=== PATIENT | male | born 1960 | race Caucasian/White ===

== ENCOUNTER 2024-10-23 14:11 | Inpatient (IN) | payer OTHER ==
[~2024-10-23] VITALS: Ht 175.3 cm; Wt 87.1 kg
[2024-10-23] VITALS (31 sets, daily range): BP systolic 91–123; BP diastolic 40–95; TEMP 98–98.1; O2SAT 87–97
[2024-10-23] MEDS ORDERED: LEVETIRACETAM (500MG) 1,000 MG in PREMIX 90 EA IV STA (14:24)
[2024-10-23 14:26] LABS: BASOPHILS % (AUTO) 0.1 % (0.0-2.0); EOSINOPHILS % (AUTO) 0.1 % (0.0-6.0); HEMATOCRIT 41 % (39-51); LYMPHOCYTES # (AUTO) 0.7 K/uL (0.8-4.8); LYMPHOCYTES % (AUTO) 5.1 % (20.0-44.0); MEAN CORPUSCULAR HEMOGLOBIN 26 PG (26.0-33.0); MEAN CORPUSCULAR HGB CONC 32 g/dl (31.0-36.0); MEAN CORPUSCULAR VOLUME 82 fL (80-96); MONOCYTES # (AUTO) 0.8 K/uL (0.1-1.30); MONOCYTES % (AUTO) 5.5 % (2.0-12.0); NEUTROPHILS # (AUTO) 12.9 K/uL (1.8-8.9); NEUTROPHILS % (AUTO) 89.2 % (43.0-81.0); PLATELET COUNT (AUTO) 241 K/uL (150-450); RED BLOOD CELL COUNT(AUTO) 4.93 MIL/uL (4.5-6.0); RED CELL DISTRIBUTION WIDTH 16.3 % (11.5-15.0); WHITE BLOOD COUNT (AUTO) 14.5 K/uL (4.3-11.0)
[2024-10-23] MEDS: DILTIAZEM HCL 50 MG IV IV ONE (14:30)
[2024-10-23] MEDS: IV NS 0.9% 1,000 ML BAG IV ONE ×2 (14:30→16:57)
[2024-10-23] MEDS ORDERED: DILTIAZEM HCL 50 MG IV ONE (14:37)
[2024-10-23] MEDS: LEVETIRACETAM (500MG) 1,000 MG in IV NS 0.9% 90 ML IV STA (14:39)
[2024-10-23 14:44] LABS: CALCIUM, SERUM 9.3 mg/dL (8.5-10.1); CARBON DIOXIDE 23 mmol/L (21-32); CHLORIDE 98 mmol/L (98-107); GLUCOSE 122 mg/dL (74-106); POTASSIUM 5.8 mmol/L (3.5-5.1); SODIUM SERUM 133 mmol/L (136-145)
[2024-10-23 14:48] LABS: CREATININE 9.1 mg/dL (0.6-1.3); UREA NITROGEN, BLOOD 106 mg/dL (7-18)
[2024-10-23 14:59] LABS: LACTIC ACID 2.1 mmol/L (0.4-2.0)
[2024-10-23] MEDS ORDERED: LEVETIRACETAM (500MG) 1,000 MG in IV NS 0.9% 90 ML IV SCH (15:00)
[2024-10-23] MEDS: SODIUM BICARBONATE SYR 50 MEQ/50 ML DISP.SYRIN IV ONE (15:00)
[2024-10-23] MEDS: CEFEPIME 1 GM in IV D5W 50 ML IV ONE (15:00)
[2024-10-23 15:01] LABS: INR 1.18 (0.91-1.10)
[2024-10-23] MEDS: Calcium Gluconate 1GM/10ML 4.65 MEQ in IV NS 0.9% 100 ML IV ONE (15:09)
[2024-10-23] MEDS ORDERED: Calcium Gluconate 0.465 MEQ/ML VIAL IV ONE (15:11)
[2024-10-23] MEDS: Calcium Gluconate 0.465 MEQ/ML VIAL IV ONE (15:15)
[2024-10-23 15:21] LABS: ALANINE AMINOTRANSFERASE 545 U/L (12-78); ALBUMIN 2.7 g/dL (3.4-5.0); ALCOHOL, BLOOD < 3 mg/dL (0-10); ALKALINE PHOSPHATASE 113 U/L (46-116); ASPARTATE AMINOTRANSFERASE 742 U/L (15-37); BILIRUBIN,DIRECT 1.1 mg/dL (0.0-0.2); BILIRUBIN,TOTAL 1.3 mg/dL (0.2-1.0); TOTAL PROTEIN, SERUM 6.3 g/dL (6.4-8.2)
[2024-10-23 15:25] LABS: ACETAMINOPHEN <10 ug/ml (10-30); SALICYLATE < 2.3 mg/dL (2.8-20.0)
[2024-10-23] MEDS ORDERED: Magnesium 1GM/D5W 100ML PREMIX 100 ML IV ONE (15:27)
[2024-10-23] MEDS: Magnesium 1GM/D5W 100ML PREMIX 100 ML IV SCH (15:30)
[2024-10-23] MEDS: VANCOMYCIN 1 GM in IV D5W 250 ML IV ONE (15:30)
[2024-10-23] MEDS ORDERED: Z GUARD REMEDY 4 OZ OINT TP PRN (16:30)
[2024-10-23] MEDS ORDERED: ONDANSETRON HCL/PF 4 MG/2 ML VIAL IVP PRN (16:30)
[2024-10-23] MEDS ORDERED: ACETAMINOPHEN 325 MG TABLET PO PRN (16:30)
[2024-10-23] MEDS: DILTIAZEM HCL IV 125 MG in IV NS 0.9% 100 ML IV PRN (16:30)
[2024-10-23 16:40] LABS: AMPHETAMINE, URINE NEGATIVE (NEGATIVE); BARBITURATE, URINE NEGATIVE (NEGATIVE); CANNABINOID, URINE NEGATIVE (NEGATIVE); COCCAINE, URINE NEGATIVE (NEGATIVE); PHENCYCLIDINE SCREEN,URINE NEGATIVE (NEGATIVE)
[2024-10-23 16:42] LABS: BENZODIAZEPINE, URINE POSITIVE (NEGATIVE); OPIATE, URINE POSITIVE (NEGATIVE)
[2024-10-23 16:49] LABS: APPEARANCE,URINE CLOUDY (CLEAR); BILIRUBIN,URINE MODERATE (NEGATIVE); BLOOD, URINE LARGE Ery/uL (NEGATIVE); COLOR,URINE DARK YELLOW (YELLOW); KETONES,URINE TRACE mg/dL (NEGATIVE); PH,URINE 5.5 (5.0-8.0); PROTEIN,URINE >=300 mg/dl (NEGATIVE); UGLUCOSE NEGATIVE (NEGATIVE); UROBILINOGEN,URINE 0.2 EU/dL (0.2)
[2024-10-23 16:50] LABS: LEUKOCYTE ESTERASE ,URINE SMALL (NEGATIVE); NITRITE, URINE NEGATIVE (NEGATIVE)
[2024-10-23 17:10] LABS: ADD URINE CULTURE YES; BACTERIA,URINE 3+ /HPF (None Seen); RBC,URINE 51-80 /HPF (0-2); WBC,URINE 21-50 /HPF (0-3)
[2024-10-23 17:32] LABS: CALCIUM, SERUM 8.9 mg/dL (8.5-10.1); POTASSIUM 5.7 mmol/L (3.5-5.1)
[2024-10-23] MEDS: AMIODARONE 150 MG in IV D5W 100 ML IV ONE ×2 (17:45→18:23)
[2024-10-23] MEDS: AMIODARONE 450 MG in IV D5W 241 ML IV PRN ×2 (18:00→18:33)
[2024-10-23 18:03] LABS: CREATININE 8.6 mg/dL (0.6-1.3)
[2024-10-23] MEDS: IV NS 0.9% 1,000 ML IV PRN (18:33)
[2024-10-23] MEDS ORDERED: PHENYLEPHRINE 50 MG in IV NS 0.9% 245 ML IV PRN (19:30)
[2024-10-23 22:01] LABS: SERUM AMMONIA 26 umol/L (11-32)
[2024-10-23] MEDS: HEPARIN SODIUM, PORCINE 5000 UNITS/1 ML VIAL SQ SCH (23:04)
[2024-10-24] VITALS (44 sets, daily range): BP systolic 92–152; BP diastolic 44–140; TEMP 97.5–99.1; O2SAT 86–97
[2024-10-24 05:03] LABS: EOSINOPHILS # (AUTO) 0.3 K/uL (0.0-0.7); EOSINOPHILS % (AUTO) 1.4 % (0.0-6.0); HEMATOCRIT 34 % (39-51); HEMOGLOBIN 11.6 g/dL (13.5-17.5); LYMPHOCYTES # (AUTO) 0.7 K/uL (0.8-4.8); LYMPHOCYTES % (AUTO) 3.3 % (20.0-44.0); MEAN CORPUSCULAR HEMOGLOBIN 27 PG (26.0-33.0); MEAN CORPUSCULAR HGB CONC 34 g/dl (31.0-36.0); MEAN CORPUSCULAR VOLUME 80 fL (80-96); MONOCYTES # (AUTO) 1.2 K/uL (0.1-1.30); MONOCYTES % (AUTO) 5.7 % (2.0-12.0); NEUTROPHILS # (AUTO) 18.9 K/uL (1.8-8.9); NEUTROPHILS % (AUTO) 89.6 % (43.0-81.0); PLATELET COUNT (AUTO) 242 K/uL (150-450); RED BLOOD CELL COUNT(AUTO) 4.31 MIL/uL (4.5-6.0); RED CELL DISTRIBUTION WIDTH 15.8 % (11.5-15.0); WHITE BLOOD COUNT (AUTO) 21.1 K/uL (4.3-11.0)
[2024-10-24 05:41] LABS: ALBUMIN 2.4 g/dL (3.4-5.0); BILIRUBIN,TOTAL 1.6 mg/dL (0.2-1.0); CALCIUM, SERUM 8.5 mg/dL (8.5-10.1); CREATININE 7.2 mg/dL (0.6-1.3); MAGNESIUM 2.4 mg/dL (1.8-2.4); PHOSPHORUS 3.9 mg/dL (2.5-4.9); TOTAL PROTEIN, SERUM 5.8 g/dL (6.4-8.2)
[2024-10-24 05:48] LABS: BAND % (MANUAL) 1 % (0.0-5.0); LYMPHOCYTES % (MANUAL) 6 % (16-48); MONOCYTES % (MANUAL) 3 % (0-11.0); NEUTROPHILS % (MANUAL) 90 (42-76); PLATELET ESTIMATE ADEQUATE
[2024-10-24] MEDS: ASPIRIN 81 MG TAB.CHEW PO SCH (09:49)
[2024-10-24] MEDS: SOTALOL AF 80 MG TABLET PO SCH (09:49)
[2024-10-24] MEDS ORDERED: LORAZEPAM INJ 2 MG/ML VIAL IV PRN (10:30)
[2024-10-24] MEDS: LORAZEPAM INJ 2 MG/ML VIAL IV SCH (11:10)
[2024-10-24] MEDS: CEFEPIME 1 GM in IV D5W 50 ML IV SCH (15:02)
[2024-10-24 21:36] LABS: CHOLESTEROL 19 mg/dL (<200); HDL CHOLESTEROL < 10 mg/dL (40-60); LDL 14 mg/dL (0-99); TRIGLYCERIDES 15 mg/dL (30-150)
[2024-10-25] VITALS (18 sets, daily range): BP systolic 94–122; BP diastolic 40–92; TEMP 97.8–98.8; O2SAT 90–98
[2024-10-25 04:39] LABS: BASOPHILS % (AUTO) 0.1 % (0.0-2.0); EOSINOPHILS # (AUTO) 0.1 K/uL (0.0-0.7); EOSINOPHILS % (AUTO) 0.6 % (0.0-6.0); HEMATOCRIT 37 % (39-51); HEMOGLOBIN 12.1 g/dL (13.5-17.5); LYMPHOCYTES # (AUTO) 0.7 K/uL (0.8-4.8); LYMPHOCYTES % (AUTO) 4.4 % (20.0-44.0); MEAN CORPUSCULAR HEMOGLOBIN 26 PG (26.0-33.0); MEAN CORPUSCULAR HGB CONC 33 g/dl (31.0-36.0); MEAN CORPUSCULAR VOLUME 80 fL (80-96); MONOCYTES # (AUTO) 1.7 K/uL (0.1-1.30); MONOCYTES % (AUTO) 10.4 % (2.0-12.0); NEUTROPHILS # (AUTO) 14.2 K/uL (1.8-8.9); NEUTROPHILS % (AUTO) 84.5 % (43.0-81.0); PLATELET COUNT (AUTO) 265 K/uL (150-450); RED BLOOD CELL COUNT(AUTO) 4.65 MIL/uL (4.5-6.0); RED CELL DISTRIBUTION WIDTH 16.4 % (11.5-15.0); WHITE BLOOD COUNT (AUTO) 16.7 K/uL (4.3-11.0)
[2024-10-25 04:53] LABS: BILIRUBIN,TOTAL 1.2 mg/dL (0.2-1.0); CALCIUM, SERUM 7.8 mg/dL (8.5-10.1); CREATININE 6.9 mg/dL (0.6-1.3); MAGNESIUM 2.4 mg/dL (1.8-2.4); TOTAL PROTEIN, SERUM 5.5 g/dL (6.4-8.2)
[2024-10-25 06:15] LABS: LYMPHOCYTES % (MANUAL) 5 % (16-48); MONOCYTES % (MANUAL) 6 % (0-11.0); NEUTROPHILS % (MANUAL) 89 (42-76)
[2024-10-25 06:16] LABS: PLATELET ESTIMATE ADEQUATE
[2024-10-25 06:17] LABS: ANISOCYTOSIS 1+; TARGET CELLS 1+
[2024-10-25] MEDS ORDERED: LORAZEPAM INJ 2 MG/ML VIAL IV PRN (13:00)
[2024-10-25] MEDS: ACETAMINOPHEN 325 MG TABLET PO PRN (17:35)
[2024-10-25] MEDS ORDERED: SOTALOL AF 80 MG TABLET ONE (21:31)
[2024-10-26] VITALS: BP 111/52; TEMP 98.8; O2SAT 97
[2024-10-26 04:00] VITALS: BP 120/60; TEMP 98.9; O2SAT 98
[2024-10-26 07:34] LABS: BASOPHILS % (AUTO) 0.1 % (0.0-2.0); EOSINOPHILS % (AUTO) 0.1 % (0.0-6.0); HEMATOCRIT 38 % (39-51); HEMOGLOBIN 12.5 g/dL (13.5-17.5); LYMPHOCYTES # (AUTO) 1.1 K/uL (0.8-4.8); LYMPHOCYTES % (AUTO) 7.3 % (20.0-44.0); MEAN CORPUSCULAR HEMOGLOBIN 26 PG (26.0-33.0); MEAN CORPUSCULAR HGB CONC 33 g/dl (31.0-36.0); MEAN CORPUSCULAR VOLUME 80 fL (80-96); MONOCYTES # (AUTO) 1.9 K/uL (0.1-1.30); NEUTROPHILS # (AUTO) 12.8 K/uL (1.8-8.9); NEUTROPHILS % (AUTO) 80.5 % (43.0-81.0); PLATELET COUNT (AUTO) 279 K/uL (150-450); RED BLOOD CELL COUNT(AUTO) 4.75 MIL/uL (4.5-6.0); RED CELL DISTRIBUTION WIDTH 16.5 % (11.5-15.0); WHITE BLOOD COUNT (AUTO) 15.8 K/uL (4.3-11.0)
[2024-10-26 07:51] LABS: ALBUMIN 1.9 g/dL (3.4-5.0); BILIRUBIN,TOTAL 0.8 mg/dL (0.2-1.0); CALCIUM, SERUM 7.8 mg/dL (8.5-10.1); MAGNESIUM 2.5 mg/dL (1.8-2.4); TOTAL PROTEIN, SERUM 5.5 g/dL (6.4-8.2)
[2024-10-26 07:52] LABS: CREATININE 8.4 mg/dL (0.6-1.3)
[2024-10-26 08:00] VITALS: BP 111/59; TEMP 98.4; O2SAT 95
[2024-10-26] MEDS: APIXABAN 5 MG TABLET PO SCH (10:00)
[2024-10-26 12:00] VITALS: BP 129/50; TEMP 97.9; O2SAT 100
[2024-10-26] MEDS ORDERED: OMEP40CA21 PO (13:39)
[2024-10-26] MEDS ORDERED: DESM0.2T4 PO (13:39)
[2024-10-26] MEDS ORDERED: LORA10TA68 PO (13:39)
[2024-10-26] MEDS ORDERED: FAMO40TA7 PO (13:39)
[2024-10-26] MEDS ORDERED: MINO2.5T PO (13:39)
[2024-10-26] MEDS ORDERED: ROSU10TA29 PO (13:39)
[2024-10-26] MEDS ORDERED: ITRA100C2 PO (13:39)
[2024-10-26 16:00] VITALS: BP 102/51; TEMP 98.4; O2SAT 95
[2024-10-26 20:00] VITALS: BP 112/55; TEMP 98.6; O2SAT 95
[2024-10-26] MEDS: CEFTRIAXONE 1 G in IV D5W 50 ML IV SCH (21:37)
[2024-10-27] VITALS: BP 110/68; TEMP 98.8; O2SAT 95
[2024-10-27 00:15] LABS: HEPATITIS B CORE AB, TOTAL Negative (Negative); HEPATITIS B SURFACE AB Reactive (.)
[2024-10-27 04:00] VITALS: BP 130/57; TEMP 98.4; O2SAT 95
[2024-10-27 07:13] LABS: BASOPHILS % (AUTO) 0.1 % (0.0-2.0); EOSINOPHILS % (AUTO) 0.2 % (0.0-6.0); HEMATOCRIT 38 % (39-51); HEMOGLOBIN 12.4 g/dL (13.5-17.5); LYMPHOCYTES # (AUTO) 1.7 K/uL (0.8-4.8); LYMPHOCYTES % (AUTO) 12.3 % (20.0-44.0); MEAN CORPUSCULAR HEMOGLOBIN 26 PG (26.0-33.0); MEAN CORPUSCULAR HGB CONC 33 g/dl (31.0-36.0); MEAN CORPUSCULAR VOLUME 78 fL (80-96); MONOCYTES # (AUTO) 2.1 K/uL (0.1-1.30); MONOCYTES % (AUTO) 15.4 % (2.0-12.0); NEUTROPHILS # (AUTO) 9.9 K/uL (1.8-8.9); PLATELET COUNT (AUTO) 272 K/uL (150-450); RED CELL DISTRIBUTION WIDTH 16.8 % (11.5-15.0); WHITE BLOOD COUNT (AUTO) 13.8 K/uL (4.3-11.0)
[2024-10-27 07:22] LABS: ERYTHROCYTE SEDIMENTATION RATE 49 MM/HR (0-20)
[2024-10-27 07:45] LABS: ALBUMIN 1.7 g/dL (3.4-5.0); BILIRUBIN,TOTAL 0.6 mg/dL (0.2-1.0); CALCIUM, SERUM 7.8 mg/dL (8.5-10.1); MAGNESIUM 2.8 mg/dL (1.8-2.4); PHOSPHORUS 6.3 mg/dL (2.5-4.9); POTASSIUM 5.1 mmol/L (3.5-5.1); TOTAL PROTEIN, SERUM 5.2 g/dL (6.4-8.2)
[2024-10-27 08:00] VITALS: BP 95/52; TEMP 98.1; O2SAT 95
[2024-10-27 08:02] LABS: CREATININE 11.1 mg/dL (0.6-1.3)
[2024-10-27 08:12] LABS: COMPLEMENT C3, SERUM 105 mg/dL (82-167); COMPLEMENT C4, SERUM 30 mg/dL (12-38)
[2024-10-27 10:09] LABS: PTH, INTACT 119 pg/mL (15-65)
[2024-10-27 12:00] VITALS: BP 107/52; TEMP 97.5; O2SAT 95
[2024-10-27] MEDS: SEVELAMER CARBONATE 800 MG TABLET PO SCH (12:59)
[2024-10-27 14:12] LABS: *ANA ANTI-CENTROMERE B AB <0.2 AI (0.0-0.9); *ANA ANTI-DNA(DS) AB, QN <1 IU/mL (0-9); *ANA ANTI-JO-1 <0.2 AI (0.0-0.9); *ANA ANTICHROMATIN ANTIBODY <0.2 AI (0.0-0.9); *ANA RNP ANTIBODIES <0.2 AI (0.0-0.9); *ANA SJOGREN'S ANTI-SS-A <0.2 AI (0.0-0.9); *ANA SJOGREN'S ANTI-SS-B <0.2 AI (0.0-0.9); *ANAANTI-SCLERODERMA-70 AB <0.2 AI (0.0-0.9); *ANASMITH AB <0.2 AI (0.0-0.9)
[2024-10-27 16:00] VITALS: BP 94/52; TEMP 97; O2SAT 97
[2024-10-27] MEDS ORDERED: ZOLPIDEM TARTRATE 10 MG TABLET PO PRN (16:30)
[2024-10-27] MEDS: NICOTINE PATCH (14MG) 14 MG PATCH.TD24 TD SCH (17:08)
[2024-10-27 20:00] VITALS: BP 90/54; TEMP 98.2; O2SAT 95
[2024-10-28] VITALS: BP 110/62; TEMP 98.2; O2SAT 96
[2024-10-28 04:00] VITALS: BP 96/47; TEMP 98.2; O2SAT 95
[2024-10-28 06:06] LABS: HEPATITIS B SURFACE AB Reactive (.)
[2024-10-28 07:52] LABS: BASOPHILS % (AUTO) 0.2 % (0.0-2.0); EOSINOPHILS # (AUTO) 0.1 K/uL (0.0-0.7); EOSINOPHILS % (AUTO) 0.6 % (0.0-6.0); HEMATOCRIT 37 % (39-51); HEMOGLOBIN 12.3 g/dL (13.5-17.5); LYMPHOCYTES # (AUTO) 1.8 K/uL (0.8-4.8); LYMPHOCYTES % (AUTO) 11.8 % (20.0-44.0); MEAN CORPUSCULAR HEMOGLOBIN 26 PG (26.0-33.0); MEAN CORPUSCULAR HGB CONC 33 g/dl (31.0-36.0); MEAN CORPUSCULAR VOLUME 78 fL (80-96); MONOCYTES # (AUTO) 2.4 K/uL (0.1-1.30); NEUTROPHILS # (AUTO) 10.8 K/uL (1.8-8.9); NEUTROPHILS % (AUTO) 71.4 % (43.0-81.0); PLATELET COUNT (AUTO) 250 K/uL (150-450); RED BLOOD CELL COUNT(AUTO) 4.78 MIL/uL (4.5-6.0); RED CELL DISTRIBUTION WIDTH 16.6 % (11.5-15.0); WHITE BLOOD COUNT (AUTO) 15.1 K/uL (4.3-11.0)
[2024-10-28 08:00] VITALS: BP 98/51; TEMP 98.4; O2SAT 96
[2024-10-28 08:07] LABS: COMPLEMENT C3, SERUM 96 mg/dL (82-167); COMPLEMENT C4, SERUM 25 mg/dL (12-38)
[2024-10-28 08:13] LABS: CALCIUM, SERUM 7.6 mg/dL (8.5-10.1); POTASSIUM 4.5 mmol/L (3.5-5.1)
[2024-10-28 08:20] LABS: CREATININE 11.1 mg/dL (0.6-1.3)
[2024-10-28] MEDS ORDERED: NICOTINE PATCH (14MG) 14 MG PATCH.TD24 TD SCH (09:00)
[2024-10-28 09:07] LABS: *SPE A/G RATIO 0.7 (0.7-1.7); *SPE ALBUMIN 2.1 g/dL (2.9-4.4); *SPE ALPHA-1-GLOBULIN 0.5 g/dL (0.0-0.4); *SPE BETA GLOBULIN 0.9 g/dL (0.7-1.3); *SPE GLOBULIN, TOTAL 2.9 g/dL (2.2-3.9); *SPE M-SPIKE Not Observed g/dL (Not Observed); *SPEGAMMA GLOBULIN 0.6 g/dL (0.4-1.8)
[2024-10-28 12:00] VITALS: BP 103/58; TEMP 98.6; O2SAT 95
[2024-10-28] MEDS: HYDROCODONE/APAP 10/325MG TABLET PO PRN (12:51)
[2024-10-28 13:11] LABS: *ANA ANTI-CENTROMERE B AB <0.2 AI (0.0-0.9); *ANA ANTI-DNA(DS) AB, QN <1 IU/mL (0-9); *ANA ANTI-JO-1 <0.2 AI (0.0-0.9); *ANA ANTICHROMATIN ANTIBODY <0.2 AI (0.0-0.9); *ANA RNP ANTIBODIES <0.2 AI (0.0-0.9); *ANA SJOGREN'S ANTI-SS-A <0.2 AI (0.0-0.9); *ANA SJOGREN'S ANTI-SS-B <0.2 AI (0.0-0.9); *ANAANTI-SCLERODERMA-70 AB <0.2 AI (0.0-0.9); *ANASMITH AB <0.2 AI (0.0-0.9)
[2024-10-28 16:00] VITALS: BP 97/55; TEMP 98.4; O2SAT 94
[2024-10-28] MEDS: ALBUMIN 25% 25 GM in PREMIX 1 EA IV STA (16:12)
[2024-10-28] MEDS: FAMOTIDINE (20 MG) 20 MG TABLET PO SCH (16:16)
[2024-10-28 20:00] VITALS: BP 86/46; TEMP 98; O2SAT 100
[2024-10-28] MEDS: ATORVASTATIN 40 MG TABLET PO SCH (21:08)
[2024-10-29] VITALS: BP 120/62; TEMP 97.8; O2SAT 100
[2024-10-29 07:26] LABS: BASOPHILS % (AUTO) 0.2 % (0.0-2.0); EOSINOPHILS # (AUTO) 0.1 K/uL (0.0-0.7); EOSINOPHILS % (AUTO) 0.5 % (0.0-6.0); HEMATOCRIT 35 % (39-51); HEMOGLOBIN 11.3 g/dL (13.5-17.5); LYMPHOCYTES % (AUTO) 11.9 % (20.0-44.0); MEAN CORPUSCULAR HEMOGLOBIN 26 PG (26.0-33.0); MEAN CORPUSCULAR HGB CONC 33 g/dl (31.0-36.0); MEAN CORPUSCULAR VOLUME 78 fL (80-96); MONOCYTES # (AUTO) 2.2 K/uL (0.1-1.30); MONOCYTES % (AUTO) 12.9 % (2.0-12.0); NEUTROPHILS # (AUTO) 12.7 K/uL (1.8-8.9); NEUTROPHILS % (AUTO) 74.5 % (43.0-81.0); PLATELET COUNT (AUTO) 240 K/uL (150-450); RED BLOOD CELL COUNT(AUTO) 4.43 MIL/uL (4.5-6.0); RED CELL DISTRIBUTION WIDTH 17.1 % (11.5-15.0)
[2024-10-29 07:30] VITALS: BP_SYST 111; BP_SYST 96; BP_DIAS 47; BP_DIAS 71; TEMP 97.9; O2SAT 100; O2SAT 96
[2024-10-29 07:41] LABS: BILIRUBIN,DIRECT 0.2 mg/dL (0.0-0.2); BILIRUBIN,TOTAL 0.6 mg/dL (0.2-1.0); CALCIUM, SERUM 7.6 mg/dL (8.5-10.1); POTASSIUM 4.2 mmol/L (3.5-5.1)
[2024-10-29 07:42] LABS: CREATININE 10.1 mg/dL (0.6-1.3)
[2024-10-29 08:00] VITALS: BP 96/50; TEMP 98.4; O2SAT 99
[2024-10-29] MEDS: FLUDROCORTISONE 0.1 MG TABLET PO SCH (08:20)
[2024-10-29 09:48] LABS: BAND % (MANUAL) 2 % (0.0-5.0); LYMPHOCYTES % (MANUAL) 12 % (16-48); MONOCYTES % (MANUAL) 9 % (0-11.0); NEUTROPHILS % (MANUAL) 77 (42-76); PLATELET ESTIMATE ADEQUATE
[2024-10-29 09:49] LABS: ANISOCYTOSIS 1+
[2024-10-29 12:00] VITALS: BP 98/55; TEMP 98.4; O2SAT 99
[2024-10-29 16:00] VITALS: BP 101/50; TEMP 98.2; O2SAT 97
[2024-10-29] MEDS: HYDROCODONE/APAP 10/325MG TABLET PO PRN (18:23)
[2024-10-29] MEDS ORDERED: LORAZEPAM 0.5 MG TABLET PO PRN (18:30)
[2024-10-29 20:00] VITALS: BP 107/54; TEMP 98.4; O2SAT 97
[2024-10-29] MEDS: ZOLPIDEM TARTRATE 10 MG TABLET PO SCH (22:09)
[2024-10-30] VITALS: BP 120/70; TEMP 98.6; O2SAT 98
[2024-10-30 04:00] VITALS: BP 115/57; TEMP 98.5; O2SAT 99
[2024-10-30 07:43] LABS: BASOPHILS % (AUTO) 0.3 % (0.0-2.0); CALCIUM, SERUM 8.3 mg/dL (8.5-10.1); EOSINOPHILS # (AUTO) 0.1 K/uL (0.0-0.7); EOSINOPHILS % (AUTO) 0.8 % (0.0-6.0); HEMATOCRIT 33 % (39-51); HEMOGLOBIN 11.3 g/dL (13.5-17.5); LYMPHOCYTES % (AUTO) 12.1 % (20.0-44.0); MEAN CORPUSCULAR HEMOGLOBIN 27 PG (26.0-33.0); MEAN CORPUSCULAR HGB CONC 34 g/dl (31.0-36.0); MEAN CORPUSCULAR VOLUME 78 fL (80-96); MONOCYTES # (AUTO) 1.9 K/uL (0.1-1.30); MONOCYTES % (AUTO) 11.7 % (2.0-12.0); NEUTROPHILS # (AUTO) 12.4 K/uL (1.8-8.9); NEUTROPHILS % (AUTO) 75.1 % (43.0-81.0); PLATELET COUNT (AUTO) 246 K/uL (150-450); POTASSIUM 4.2 mmol/L (3.5-5.1); RED BLOOD CELL COUNT(AUTO) 4.24 MIL/uL (4.5-6.0); RED CELL DISTRIBUTION WIDTH 16.8 % (11.5-15.0); WHITE BLOOD COUNT (AUTO) 16.5 K/uL (4.3-11.0)
[2024-10-30 07:55] LABS: CREATININE 12.3 mg/dL (0.6-1.3)
[2024-10-30 11:08] LABS: FOLIC ACID 10.6 ng/mL (>3.0)
[2024-10-30] MEDS ORDERED: HEPARIN SODIUM, PORCINE 1,000 UNIT/ML VIAL ONE (11:27)
[2024-10-30] MEDS ORDERED: IOHEXOL 50 ML IV ONE (11:27)
[2024-10-30] MEDS ORDERED: LIDOCAINE HCL/MPF 1% 30 ML VIAL IJ ONE (11:27)
[2024-10-30 15:15] VITALS: BP 134/59; TEMP 98.3; O2SAT 99
[2024-10-30 16:00] VITALS: BP 129/69; TEMP 97.7; O2SAT 100
[2024-10-30 16:15] LABS: APPEARANCE,URINE SLIGHTLY CLOUDY (CLEAR); BILIRUBIN,URINE 1+ (NEGATIVE); BLOOD, URINE 3+ Ery/uL (NEGATIVE); KETONES,URINE TRACE mg/dL (NEGATIVE); LEUKOCYTE ESTERASE ,URINE 1+ (NEGATIVE); NITRITE, URINE POSITIVE (NEGATIVE); PH,URINE 5.5 (5.0-8.0); PROTEIN,URINE 2+ mg/dl (NEGATIVE); UGLUCOSE NEGATIVE (NEGATIVE)
[2024-10-30 16:16] LABS: COLOR,URINE AMBER (YELLOW)
[2024-10-30 16:17] LABS: ADD URINE CULTURE YES; BACTERIA,URINE 1+ /HPF (None Seen); RBC,URINE 51-80 /HPF (0-2); SQUAMOUS EPITHELIAL CELL,UR Rare /HPF (None Seen)
[2024-10-30 16:21] LABS: CREATININE, URINE 127.6 MG/DL (30.0-125.0); URINE TOTAL PROTEIN 248.1 mg/dL (0-11.9)
[2024-10-30 17:29] LABS: EOSINOPHIL,URINE None Seen
[2024-10-30 20:00] VITALS: BP 104/55; TEMP 97.7; O2SAT 98
[2024-10-30] MEDS: ANCEF 1 GM/50 ML D5W IV SCH (21:23)
[2024-10-31 04:00] VITALS: BP 116/52; TEMP 98.1; O2SAT 98
[2024-10-31 07:59] LABS: BASOPHILS % (AUTO) 0.3 % (0.0-2.0); EOSINOPHILS # (AUTO) 0.1 K/uL (0.0-0.7); EOSINOPHILS % (AUTO) 0.7 % (0.0-6.0); HEMATOCRIT 31 % (39-51); HEMOGLOBIN 10.4 g/dL (13.5-17.5); LYMPHOCYTES # (AUTO) 1.9 K/uL (0.8-4.8); LYMPHOCYTES % (AUTO) 15.3 % (20.0-44.0); MEAN CORPUSCULAR HEMOGLOBIN 27 PG (26.0-33.0); MEAN CORPUSCULAR HGB CONC 34 g/dl (31.0-36.0); MEAN CORPUSCULAR VOLUME 79 fL (80-96); MONOCYTES # (AUTO) 1.5 K/uL (0.1-1.30); MONOCYTES % (AUTO) 11.8 % (2.0-12.0); NEUTROPHILS # (AUTO) 9.1 K/uL (1.8-8.9); NEUTROPHILS % (AUTO) 71.9 % (43.0-81.0); PLATELET COUNT (AUTO) 240 K/uL (150-450); RED CELL DISTRIBUTION WIDTH 16.6 % (11.5-15.0); WHITE BLOOD COUNT (AUTO) 12.6 K/uL (4.3-11.0)
[2024-10-31 08:00] VITALS: BP 99/46; TEMP 97.9; O2SAT 97
[2024-10-31 08:16] LABS: CALCIUM, SERUM 7.9 mg/dL (8.5-10.1); POTASSIUM 3.8 mmol/L (3.5-5.1)
[2024-10-31 08:18] LABS: CREATININE 11.5 mg/dL (0.6-1.3)
[2024-10-31 10:51] LABS: BAND % (MANUAL) 1 % (0.0-5.0); NEUTROPHILS % (MANUAL) 70 (42-76)
[2024-10-31 10:53] LABS: ANISOCYTOSIS 1+; LYMPHOCYTES % (MANUAL) 16 % (16-48); METAMYELOCYTES % 1 % (0-0); MONOCYTES % (MANUAL) 10 % (0-11.0); MYELOCYTES % 1 % (0-0); PLATELET ESTIMATE ADEQUATE; PROMYELOCYTES % 1 % (0-0)
[2024-10-31 12:00] VITALS: BP 116/59; TEMP 97.6; O2SAT 98
[2024-10-31] MEDS ORDERED: CEFT1FRO2 IV (14:33)
[2024-10-31] MEDS ORDERED: NICO-676 TD (14:33)
[2024-10-31] MEDS ORDERED: SEVE800T7 PO (14:33)
[2024-10-31] MEDS ORDERED: SOTA80TA6 PO (14:33)
[2024-10-31] MEDS ORDERED: FLUD0.1T3 PO (14:33)
[2024-10-31] MEDS ORDERED: ACET325T53 PO (14:33)
[2024-10-31] MEDS ORDERED: APIX5TAB PO (14:33)
[2024-10-31] MEDS ORDERED: HYDR-3980 PO (14:33)
[2024-10-31] MEDS: ALBUMIN 25% 12.5 GM in PREMIX 1 EA IV PRN (16:59)
== END 2024-10-31 18:33 | DRG 720 ==
LOC: ER 14:27 → ICU 17:21 → TELE1 10-25 16:12 → TELE-TD 10-25 16:18 → TELE1 10-27 09:38 → MEDSG1 10-30 05:35
PROVIDERS: ADMIT Nurse Practitioner Acute Care; ATTEND Nurse Practitioner Acute Care
PROC: 5A1D70Z Performance of Urinary Filtration, Intermittent, Less than 6 Hours Per Day (ICD-10-PCS; 2024-10-23)
PROC: 02HV33Z Insertion of Infusion Device into Superior Vena Cava, Percutaneous Approach (ICD-10-PCS; 2024-10-27)
PROC: B548ZZA Ultrasonography of Superior Vena Cava, Guidance (ICD-10-PCS; 2024-10-27)
PROC: 0JH63XZ Insertion of Tunneled Vascular Access Device into Chest Subcutaneous Tissue and Fascia, Percutaneous Approach (ICD-10-PCS; principal; 2024-10-30)
PROC: 02HV33Z Insertion of Infusion Device into Superior Vena Cava, Percutaneous Approach (ICD-10-PCS; 2024-10-30)
PROC: B518YZA Fluoroscopy of Superior Vena Cava using Other Contrast, Guidance (ICD-10-PCS; 2024-10-30)
DX: A41.51 Sepsis due to Escherichia coli [E. coli] (principal); N17.0 Acute kidney failure with tubular necrosis; G92.8 Other toxic encephalopathy; I21.A1 Myocardial infarction type 2; E87.1 Hypo-osmolality and hyponatremia; I48.91 Unspecified atrial fibrillation; E86.9 Volume depletion, unspecified; N39.0 Urinary tract infection, site not specified; D64.9 Anemia, unspecified; E78.5 Hyperlipidemia, unspecified; E87.20 Acidosis, unspecified; E87.5 Hyperkalemia; Z71.6 Tobacco abuse counseling; R74.01 Elevation of levels of liver transaminase levels; F19.139 Other psychoactive substance abuse with withdrawal, unspecified; F17.210 Nicotine dependence, cigarettes, uncomplicated; M89.8X9 Other specified disorders of bone, unspecified site; N40.1 Benign prostatic hyperplasia with lower urinary tract symptoms; N20.0 Calculus of kidney; E80.6 Other disorders of bilirubin metabolism; N18.6 End stage renal disease
CPT/HCPCS: 36415; 70450-TC; 71045-TC; 76770-TC; 80048-TC; 80053-TC; 80061-TC; 80076-TC; 81001; 82140-TC; 82550-TC; 82553; 82570-TC; 82607-TC; 82962-TC; 83605-TC; 83735-TC; 83921; 83970; 84100-TC; 84155; 84165; 84300-TC; 84484-TC; 85025-TC; 85652-TC; 85730-TC; 86225; 86235; 86704; 86706; 86803; 87040-TC; 87081-TC; 87086-TC; 87186-TC; 87340; 90935-TC; 92526; 92611-TC; 93307-TC; 94799-TC; 97110-TC; 97112-TC; 97116-TC; 97530-TC; 97535-TC; A4216; A4217; A4223; C1750; C1757; C1769; C1894; G0378; G0480; J0282; J0610; J0690; J0692; J0696; J1644; J1953; J2060; J2704; J3370; J3475; J3490; J7030; J7050; J7060; P9047; Q9967